=== PATIENT | male | born 1995 | race Caucasian/White ===

== ENCOUNTER 2019-10-16 06:30 | Inpatient (IN) | payer BC, OTHER ==
[2019-10-16] MEDS ORDERED: Acetaminophen TAB* 325 MG PO ONE (06:47)
[2019-10-16] MEDS ORDERED: Piperacillin/Tazobac ADVAN(*) 3.375 GM in NS 0.9% 100 ML* 100 ML IVPB ONE (06:48)
[2019-10-16] MEDS ORDERED: Ondansetron INJ* 2 MG/ML VIAL IV ONE (06:50)
--- NOTE | 2019-10-16 06:50 | ED ---
GI/ HPI - HPI Summary HPI Summary: 23 year old male presents with abdominal pain for the psat couple days. He ate a fatty meal on and developed the pain then and has been intermittent since. He admits to nausea for the past couple days. He had diarrhea today. no blood in his stool. He developed a fever today. Denies any chest pain. Denies any cough. He admits to shortness of breath. His pain does radiate to his back. Pain is in his right upper quadrant. He has never had this pain before. Does have history of spleen removed due to splenomegaly. He states when he gets sick he is normal placed on antibiotics. Never had this before. Not around anyone who is sick. No recent travel. He states his only been able to eat applesauce down the past couple days. He denies any alcohol use. - History of Current Complaint Chief Complaint: EDAbdPain Time Seen by Provider: 10/16/19 06:37 Stated Complaint: ABD PAIN FOR A WEEK PER PT Pain Intensity: 2 - Allergy/Home Medications Allergies/Adverse Reactions: Allergies Allergy/AdvReac Type Severity Reaction Status Date / Time No Known Allergies Allergy Verified 10/16/19 06:32 Home Medications: Home Medications NK [No Home Medications Reported] 10/16/19 [History Confirmed 10/16/19] PMH/Surg Hx/FS Hx/Imm Hx Endocrine/Hematology History: Reports: Other Endocrine/Hematological Disorders - asplenic Cardiovascular History: Denies: Hx Hypertension Infectious Disease History: No Infectious Disease History: Denies: Traveled Outside the [place] in Last 30 Days - Family History Known Family History: Positive: Non-Contributory - Social History Substance Use Type: Reports: None Smoking Status (MU): Never Smoked Tobacco Review of Systems Positive: Fever, Chills Negative: Chest Pain Negative: Shortness Of Breath, Cough Positive: Abdominal Pain, Vomiting, Diarrhea, Nausea All Other Systems Reviewed And Are Negative: Yes Physical Exam Triage Information Reviewed: Yes Vital Signs On Initial Exam: Initial Vitals Temp Pulse Resp BP Pulse Ox 103 F 152 20 115/75 95 10/16/19 06:33 10/16/19 06:33 10/16/19 06:33 10/16/19 06:33 10/16/19 06:33 Vital Signs Reviewed: Yes Appearance: Positive: Well-Appearing Skin: Positive: Warm, Dry Head/Face: Positive: Normal Head/Face Inspection Eyes: Positive: Normal, Conjunctiva Clear Respiratory/Lung Sounds: Positive: Clear to Auscultation, Breath Sounds Present Cardiovascular: Positive: Normal, RRR Abdomen Description: Positive: Soft, CVA Tenderness (R), Other: - tenderness in RUQ Bowel Sounds: Positive: Present Musculoskeletal: Positive: Normal Neurological: Positive: Normal Psychiatric: Positive: Normal Procedures - Sedation Patient Received Moderate/Deep Sedation with Procedure: No Diagnostics - Vital Signs Vital Signs Temp Pulse Resp BP Pulse Ox 10/16/19 06:33 103 F 152 20 115/75 95 - Laboratory Result Diagrams: 10/16/19 07:20 10/16/19 07:20 Lab Statement: Any lab studies that have been ordered have been reviewed, and results considered in the medical decision making process. - Radiology chest Radiology Interpretation Completed By: ED Physician Summary of Radiographic Findings: #. Elevated lung volumes may reflect obstructive lung disease or simply exuberant inspiratory effort for examination - CT abd Summary of CT Findings: IMPRESSION: #. Indeterminant 7.1 x 8.7 x 6.9 cm mass at the RIGHT posterior hepatic segment. Given evidence for portal hypertension the differential includes hepatocellular carcinoma as well as hepatic adenoma. In the correct clinical context a hepatic abscess would also be possible. The provider notes that the patient has fever and elevated white blood cell count raising concern for potential abscess. Ultrasound-guided fine-needle aspiration biopsy suggested for pathologic assessment and microbiology/culture. #. Negative for lymphadenopathy. #. Post splenectomy. - Ultrasound No standard instances Ultrasound Interpretation Completed By: Radiologist Summary of Ultrasound Findings: IMPRESSION: No evidence of cholelithiasis or biliary duct dilatation is noted. There is a mass which appears to be extrinsic to the liver may represent an adrenal mass measuring 7.8 x 6.2 x 8.[address] is suggested. Re-Evaluation - Re-Evaluation First Eval Re-Evaluation Time: 08:54 Change: Improved Comment: feeling better Second Eval Re-Evaluation Time: 13:25 Comment: pain is returning GIGU Course/Dx - Course Course Of Treatment: 23 year old male presents with abdominal pain today. He admits to nausea for the past couple days. He had diarrhea today. no blood in his stool. He developed a fever today. Denies any chest pain. Denies any cough. He admits to shortness of breath. His pain does radiate to his back. Pain is in his right upper quadrant. He has never had this pain before. Does have history spleen removed due to splenomegaly. He states when he gets sick he is normal placed on antibiotics. Never had this before. Not around anyone who is sick. No recent travel. He states his only been able to eat applesauce down the past couple days. On exam tenderness RUQ. Right CVA tenderness. wbc 23. crp elevated. lfts elevated. lipase normal. gallbladder u/s shows potential adrenal mass. chest xray shows no active disease. urine no infection. gave fluids, tyenlol and zosyn and patient continues to be tachycardic. did covid test with fever and admits to shortness of breath. CT shows liver mass. may be abscess but less likely. placed on zosyn and fluids. discussed with dr gonzales who agrees to admit. - Diagnoses Differential Diagnoses - Male: Cholecystitis, Cholelithiasis, Gastroenteritis ( Bacterial), Gastroenteritis (Viral) Provider Diagnoses: Fever, Liver mass, Sepsis - Critical Care Time Critical Care Time: 30-74 min - 40 mins Discharge ED - Sign-Out/Discharge Documenting (check all that apply): Patient Departure - Discharge Plan Condition: Stable Disposition: ADMITTED TO [facility] - Billing Disposition and Condition Condition: STABLE Disposition: Admitted to [facility] - Attestation Statements Provider Attestation: I was available for consult. This patient was seen by the CHARLES. The patient was not presented to, seen by, or examined by me. John Menjivar MD
[2019-10-16] MEDS ORDERED: Piperacillin/Tazobac (*) 3.375 GM BAG ONE (06:51)
[2019-10-16] MEDS: NS 0.9% 1000 ML** 2,000 ML IV ONE ×2 (07:11→08:23)
[2019-10-16 07:44] LABS: Hematocrit 35 % (42-52); Hemoglobin 12.3 g/dL (14.0-18.0); Mean Corpuscular HGB Conc 35 g/dL (31-36); Mean Corpuscular Hemoglobin 34 pg (27-31); Mean Corpuscular Volume 97 fL (80-94); Mean Platelet Volume 10.2 fL (7.4-10.4); Platelet Count 237 10^3/uL (150-450); Red Blood Count 3.65 10^6 /uL (4.18-5.48); Red Cell Distribution Width 13 % (10-15); White Blood Count 23.8 10^3/uL (3.5-10.8)
[2019-10-16 07:56] LABS: ALT 220 U/L (7-52); AST 108 U/L (13-39); Albumin 4.2 g/dL (3.2-5.2); Albumin/Globulin Ratio 1.2 (1-3); Alkaline Phosphatase 93 U/L (34-104); Anion Gap 13 mmol/L (2-11); Blood Urea Nitrogen 10 mg/dL (6-24); C Reactive Protein 95.34 mg/L (<8.01); CO2 Carbon Dioxide 21 mmol/L (22-32); Calcium 9.6 mg/dL (8.6-10.3); Chloride 99 mmol/L (101-111); EGFR African American 123.9 (>60); EGFR Non-African American 102.4 (>60); Globulin 3.5 g/dL (2-4); Glucose 121 mg/dL (70-100); Potassium 3.5 mmol/L (3.5-5.0); Sodium 133 mmol/L (135-145); Total Protein 7.7 g/dL (6.4-8.9)
[2019-10-16] MEDS ORDERED: NS 0.9% 1000 ML** 1,000 ML IV ONE (08:16)
[2019-10-16 09:25] LABS: Urine Appearance Clear; Urine Bilirubin Negative (Negative); Urine Blood 1+ (Negative); Urine Color Yellow; Urine Glucose Negative (Negative); Urine Ketones 1+ (Negative); Urine Nitrite Negative (Negative); Urine Protein Negative (Negative); Urine Specific Gravity 1.008 (1.010-1.030); Urine Urobilinogen Negative (Negative)
[2019-10-16 09:35] LABS: Urine Bacteria Absent (Absent); Urine Red Blood Cell Trace(0-2/hpf) (Absent); Urine White Blood Cell Trace(0-5/hpf) (Absent)
[2019-10-16 09:45] LABS: ABS Basophils 0.1 10^3/ul (0-0.2); ABS Lymphocytes 1.5 10^3/ul (1.0-4.8); ABS Monocytes 5.7 10^3/ul (0-0.8); ABS Neutrophils 16.6 10^3/ul (1.5-7.7); Lymphocyte % 6.1 %
[2019-10-16] MEDS ORDERED: Iohexol 300* (CONTRAST) 10 ML SDV IV ONE (11:08)
[2019-10-16] MEDS ORDERED: Ketorolac INJ* 30 MG/ML 1 ML VIAL IV PUSH ONE (13:25)
[2019-10-16] MEDS ORDERED: Ondansetron INJ* 2 MG/ML VIAL IV PRN (14:19)
[2019-10-16] MEDS ORDERED: fentaNYL* 50 MCG/ML 2 ML VIAL (100 MCG VIAL) ONE (14:51)
[2019-10-16 14:58] LABS: % Iron Saturation 7 % (15-55); Iron 20 ug/dL (50-212); Total Iron Binding Capacity 288 mcg/dL (250-450); Transferrin 206 mg/dL (203-362)
[2019-10-16] MEDS ORDERED: Zosyn per Pharmacy* NOTE FOLLOW UP SCH (15:00)
[2019-10-16 15:23] LABS: Folate 7.79 ng/mL (>3.99)
[2019-10-16] MEDS: ZOSYN 3.375 GM Q8H per EXTENDED INFUSION IVPB SCH ×4 (16:18→23:01)
[2019-10-16] MEDS: NS 0.9% 1000 ML** 1,000 ML IV SCH (16:18)
[2019-10-16 16:22] LABS: Hepatitis B Surface Antigen Nonreactive (Nonreactive)
[2019-10-16 16:40] LABS: Hepatitis C Antibody Negative (Negative)
--- NOTE | 2019-10-16 18:08 | HP ---
Amended report to enter cosigning physician. CC: Dr. Winter; Dr. Pranay Joy; Dr. Narendra Marquse* ADMISSION HISTORY AND PHYSICAL: DATE OF ADMISSION: 10/16/19 PRIMARY CARE PROVIDER: Dr. Winter at [facility]. MY ATTENDING WHILE IN THE HOSPITAL: Dr. Pranay Joy* (dictated by MARK Ramirez). CONSULTING INFECTIOUS DISEASE DOCTOR: Dr. Narendra Marques. CHIEF COMPLAINT: Right upper quadrant abdominal pain, nausea, diarrhea for 7 days. HISTORY OF PRESENT ILLNESS: Mr. 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 The patient has not had profuse vomiting since then. The patient never had any blood in his vomiting. The patient has not passed out. The patient has not had any significant shortness of breath, just "deep breathing" when he had a fever. The patient has not had any recent weight loss or weight gain. No chronic symptoms. The patient has not had any pain with urination. The patient is a heterosexual male, has never had anal intercourse except for female partners in his lifetime. The patient denies IV drug use. The patient does smoke occasional marijuana. The patient in 2014 visited [facility] with his family and at that time drank "bad water." The patient had no traveler 's diarrhea or other symptoms at that time. In the emergency department, the patient was found to have a large mass in the right lobe of his liver with associated signs of portal hypertension and an elevated white blood cell count, fever, elevated CRP as well as elevated liver enzymes. Due to concern for liver abscess versus other causes of liver mass, we were asked to evaluate the patient for admission to the hospital. PAST MEDICAL HISTORY: Splenomegaly, unclear cause. PAST SURGICAL HISTORY: Splenectomy in 2007. MEDICATIONS: None. ALLERGIES: None. FAMILY HISTORY: Both the patient's parents are alive and well. The patient had 2 grandparents who of lung cancer. The patient does not know what his other 2 grandparents of. The patient has no family history of early cancers, particularly no premature history of colon cancer or liver cancer. SOCIAL HISTORY: The patient does not smoke. The patient does not drink alcohol. The patient smokes occasional marijuana. 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 The patient is not and has no children. REVIEW OF SYSTEMS: A 10-point review of systems was reviewed and is negative except as above in HPI. PHYSICAL EXAMINATION GENERAL: The patient is a 23-year-old male, appears stated age and sitting comfortably in bed, in no acute distress. VITAL SIGNS: At the time of evaluation, temperature 103, pulse rate 93, respiratory rate 21, oxygen saturation 94% on room air, blood pressure 127/81. HEENT: Head is normocephalic, atraumatic. Sclerae anicteric. No conjunctival injection. Nasal mucosa moist. Oral mucosa moist. No pharyngeal erythema, discharge, or exudate. NECK: Supple, nontender. No lymphadenopathy. No carotid bruits auscultated. No JVD. RESPIRATORY: Clear to auscultation bilaterally. No wheezes, rales, or rhonchi. Good air exchange bilaterally. CARDIAC: Tachycardic. No clicks, murmurs, gallops, or rubs. Pulses 2+ in bilateral dorsalis pedis, posterior tibialis, and radial areas. ABDOMEN: Soft, tender to very deep palpation in the right upper quadrant. Bowel sounds present, normoactive in all 4 quadrants. No hepatosplenomegaly. No abdominal bruits auscultated. No hepatojugular reflux. GENITOURINARY: No suprapubic or CVA tenderness. NEUROLOGIC: Cranial nerves II through XII intact. No focal deficits. Alert and oriented x3. PSYCHIATRIC: Pleasant and cooperative. SKIN: Clean, dry, and intact. No rash. DIAGNOSTIC STUDIES/LAB DATA: Laboratory Data: White blood cell count 23.8, hemoglobin 12.3, platelet count 234. Sodium 133, potassium 3.5, chloride 99, carbon dioxide 29, anion gap 13, BUN 10, creatinine 0.91, glucose 121, lactic acid 1.1, calcium 9.6. Bilirubin 1.0, AST 108, ALT 220, alkaline phosphatase 93. CRP 95.34. Protein 7.7, albumin 4.2, globulin 3.5. Lipase 12. Studies: Gallbladder ultrasound read as no evidence of cholelithiasis, biliary duct dilatation noted. There is a mass which appears to be extending to the liver, may represent adrenal mass measuring 7.8 x 6.2 x 8.[address] is suggested. Abdomen and pelvis CT read as 7.1 x 8.7 x 6.9 cm heterogeneously hyperdense, sharply circumscribed lesion in the subcapsular posterior aspect of the of the right posterior hepatic segment with suggestion of mild marginal enhancement of lesion, results in a mild mass effect on the intrahepatic segment of the IVC. Lesion appears intrahepatic and does not arise from the adrenal gland. Negative for additional focal liver lesions. Small portal vein possibly with cavernous transformation, markedly hypertrophied hepatic artery and celiac axis. Large portosystemic shunts including paraesophageal varices. Negative for lymphadenopathy. Post splenomegaly. Concern for abscess versus hepatocellular carcinoma versus hepatic adenoma. ASSESSMENT AND PLAN: Impression: Mr. Schultz is a 23-year-old male with past medical history significant for splenomegaly, status post splenectomy in 2007, who presented to the emergency department with 1 week of abdominal pain, vomiting, and subjective fevers, who is admitted to the hospital with concern for liver abscess. 1. Liver mass. Abscess versus cancer. The patient has a large mass in his liver, 7 cm in its greatest dimension. The patient does have signs of acute infection with an elevated white blood cell count, elevated CRP, and fever. This based also in conjunction with the patient's age strongly favors liver abscess, particularly given the patient does not have cirrhotic architecture of his liver and no risks factors. The patient has no risk factors particularly for liver abscess, though amebic abscess that has been asymptomatic for the last 5 years since he was in [facility] is on the differential. The patient has no symptoms or other signs of liver cancer that may predispose to translocation in liver abscess. The patient is not a chronic alcoholic. A hepatis panel will be sent. The patient has no high-risk sexual activities for Entamoeba. Given the patient's portal hypertension, this may very well be a chronic finding. This is unlikely to be related to the patient's splenomegaly. The patient has been given a dose of Zosyn and this will be continued. The patient's case has been discussed with Dr. Narendra Marques of Infectious Disease and he recommends against anti-amoebic therapy at this time and just IV antibiotics pending culture and pathology. The patient is tachycardic particularly with movement and has been given 3 L of fluid and will be continued on it at 125 mL/hour. Given the current pandemic, there is some concern that if the patient's GI symptoms are related to COVID-19 and his liver mass is an incidental finding. The patient will be tested for COVID-19 and the patient's isolation has been upheld per Dr. Narendra Marques. The patient will have a ultrasound-guided biopsy with Dr. Eber Rene hopefully later today. The patient's stool culture , urine culture, blood cultures, stool ova and parasites, and Entamoeba histolytica antigen and antibody from his serum sent. 3. Anemia. The patient has a macrocytic anemia. There is an unlikely cause for this and his splenomegaly being related to hematologic malignancy. Folate, B12, iron studies have been sent. If patient's white blood cell count remains elevated after treatment and no other diagnosis is found or if biopsy is consistent with malignancy, Hematology/Oncology will be consulted. 4. FEN. The patient will be n.p.o. right now and then resume a full-liquid diet. The patient will have fluids as above. 5. Disposition. The patient admitted to the hospital. Estimated length of stay is greater than 2 midnights. 6. Code status. The patient would like to be a full code. TIME SPENT: Approximately 60 minutes was spent on admission of this patient, 30 of which is spent [id number] with the patient obtaining history and physical and discussing treatment plan. The plan was discussed with my attending, Dr. Pranay Joy, and he is in agreement. MARK RAMIREZ [id number]/[facility] #: [id number] MONICA
[2019-10-17] MEDS: Acetaminophen TAB* 325 MG PO PRN ×2 (04:22→12:39)
[2019-10-17 07:09] LABS: Hematocrit 33 % (42-52); Hematocrit for Retic CNT 33 % (42-52); Mean Corpuscular HGB Conc 34 g/dL (31-36); Mean Corpuscular Hemoglobin 33 pg (27-31); Mean Corpuscular Volume 98 fL (80-94); Mean Platelet Volume 9.5 fL (7.4-10.4); Platelet Count 239 10^3/uL (150-450); RBC Retic Count 3.32 10^6/uL (4.18-5.48); Red Blood Count 3.32 10^6 /uL (4.18-5.48); Red Cell Distribution Width 13 % (10-15); White Blood Count 26.7 10^3/uL (3.5-10.8)
[2019-10-17 07:26] LABS: Corrected Retic Count 0.8 % (0.5-1.5); Immature Retic Fraction 0.37
[2019-10-17] MEDS: ZOSYN 3.375 GM Q8H per EXTENDED INFUSION IVPB SCH ×4 (07:27→16:35)
[2019-10-17 07:29] LABS: ABS Basophils 0.2 10^3/ul (0-0.2); ABS Lymphocytes 2.4 10^3/ul (1.0-4.8); ABS Monocytes 7.2 10^3/ul (0-0.8); ABS Neutrophils 16.9 10^3/ul (1.5-7.7); Lymphocyte % 9.1 %
[2019-10-17 07:35] LABS: Albumin 3.4 g/dL (3.2-5.2); Albumin/Globulin Ratio 1.1 (1-3); BUN/Creatinine Ratio 7.7 (8-20); C Reactive Protein 128.56 mg/L (<8.01); Calcium 8.8 mg/dL (8.6-10.3); EGFR Non-African American 122.3 (>60); Magnesium 1.7 mg/dL (1.9-2.7); Potassium 3.8 mmol/L (3.5-5.0); Total Bilirubin 2.1 mg/dL (0.2-1.0); Total Protein 6.4 g/dL (6.4-8.9)
[2019-10-17] MEDS: NS 0.9% 1000 ML** 1,000 ML IV SCH ×2 (12:37→21:47)
[2019-10-17] MEDS ORDERED: Magnesium Sulfate 2 GM IV* 2 GM/50 ML BAG IVPB ONE (13:06)
--- NOTE | 2019-10-17 15:08 | PN ---
Subjective Date of Service: 10/17/19 Interval History: Mr. Schultz is feeling better this morning. Abdominal pain is essentially resolved. He has occasional twinges of pain when sitting up, but they are quickly resolved. No further N/V. Has been tolerating PO intake. Denies CP, SOB , cough. No concerns from nursing. Family History: Unchanged from Admission Social History: Unchanged from Admission Past Medical History: Unchanged from Admission Objective Active Medications: Acetaminophen (Tylenol Tab*) 650 mg PO Q6H PRN MILD PAIN or TEMP > 100.4 Sodium Chloride (Ns 0.9% 1000 Ml) 1,000 mls @ 125 mls/hr IV PER RATE KEYSHAWN Piperacillin Sod/Tazobactam (Sod 3.375 gm/ Sodium Chloride) 100 mls @ 25 mls/ hr IVPB Q8H KEYSHAWN Ondansetron HCl (Zofran Inj*) 4 mg IV Q6H PRN NAUSEA Vital Signs - 8 hr 10/17/19 10/17/19 10/17/19 07:15 07:48 11:15 Temperature 98.1 F 101.1 F Pulse Rate 98 98 Respiratory 18 18 18 Rate Blood Pressure 125/74 126/75 (mmHg) O2 Sat by Pulse 97 96 Oximetry Oxygen Devices in Use Now: None Appearance: Young adult male sitting in bed in NAD Ears/Nose/Mouth/Throat: Mucous Membranes Moist Neck: NL Appearance and Movements; NL JVP, Trachea Midline Respiratory: Symmetrical Chest Expansion and Respiratory Effort, Clear to Auscultation Cardiovascular: NL Sounds; No Murmurs; No JVD, RRR Abdominal: NL Sounds; No Tenderness; No Distention Neurological: Alert and Oriented x 3 Lines/Tubes/Other Access: Clean, Dry and Intact Peripheral IV Nutrition: Taking PO's Result Diagrams: 10/17/19 07:02 10/17/19 07:02 Assess/Plan/Problems-Billing Assessment: Ms. Schultz is a 23 yo M with PMH of splenomegaly s/p splenectomy; presented to the ED with c/o abdominal pain and vomiting, found to have a liver mass of unknown etiology. - Patient Problems (1) Liver mass Code(s): R16.0 - HEPATOMEGALY, NOT ELSEWHERE CLASSIFIED Comment: - With mild transaminitis - CT showing 8cm mass in the right posterior liver - Differentials: hepatocellular carcinoma, hepatic adenoma, abscess - Leukocytosis, fever, and elevated CRP support abscess - Liver biopsy yesterday, results pending - Appreciate ID consult - Continue Zosyn (2) Abdominal pain Code(s): R10.9 - UNSPECIFIED ABDOMINAL PAIN Comment: - With N/V and fevers, now resolved - COVID pending (3) Macrocytic anemia Code(s): D53.9 - NUTRITIONAL ANEMIA, UNSPECIFIED Comment: - Iron studies consistent with AOCD - Possibly r/t infection - Continue to trend and await biopsy results (4) DVT prophylaxis Code(s): Z29.9 - ENCOUNTER FOR PROPHYLACTIC MEASURES, UNSPECIFIED Comment: - TEDs (5) Full code status Code(s): Z78.9 - OTHER SPECIFIED HEALTH STATUS Comment: Status and Disposition: Inpatient. Anticipate d/c home when medically stable. Attending: Dania Mujica
[2019-10-17] MEDS ORDERED: Melatonin 3 MG TAB PO PRN (18:52)
--- NOTE | 2019-10-17 20:41 | CONS ---
CONSULTATION REPORT: DATE OF CONSULT: 10/17/19 PRIMARY CARE PROVIDER: Dr. Winter. PROVIDER REQUESTING CONSULTATION: MARK Donovan. CONSULTING SERVICE: Infectious Diseases. PROVIDER: Luis Miguel Mascorro NP. ATTENDING PROVIDER: Dr. Narendra Marques* (Luis Miguel Mascorro NP). REASON FOR CONSULTATION: Suspected liver abscess. IMPRESSION: 1. Suspected liver abscess. The patient developed abdominal pain approximately 1 week ago in the setting of vomiting and this has continued for a week. He was noted to have leukocytosis with a white blood cell count of approximately 26,000 today, elevated CRP of 128.56. CMP also revealed elevated LFTs. A gallbladder ultrasound with no evidence of cholelithiasis, biliary duct dilation noted, a mass which appears to be extending to the liver, may represent adrenal mass measuring 7.8 x 6.2 x 8.6. He also had an abdomen pelvis CT showing a 7.1 x 8.7 x 6.9 cm heterogeneously hyperdense, sharply circumscribed lesion in the subscapular posterior aspect of the right posterior hepatic segment with suggestion of mild marginal enhancement of lesion, mild mass effect of the intrahepatic segment of the IVC. Lesion appears intrahepatic and does not arise from the adrenal gland. Negative for additional focal liver lesion. No lymphadenopathy, post splenomegaly, concern for abscess versus hepatocellular carcinoma versus hepatic adenoma. Additionally, the patient is noted to be febrile with a temperature max of 103 overnight. Mild tachycardia with heart rate in the 90s to 110s. Blood cultures with no growth. Additionally, urine culture with no growth. He is currently on Zosyn. No identified risk factors for liver abscess. The patient denies any IV drug use, any recent abdominal surgeries. He was noted to have traveled to [facility] approximately 5 years ago, no other recent travel. He underwent an ultrasound- guided biopsy yesterday with results still pending. Unfortunately, no fluid was obtained and sent for culture; just a biopsy was obtained. 2. Anemia. Noted to have macrocytic anemia. RECOMMENDATIONS/PLAN: Recommend continuing Zosyn while we await biopsy results from the liver. Additionally, COVID-19 testing is pending at this time. We will continue to follow along. Final recommendations will be based on the patient's clinical course and final workup. HISTORY OF PRESENT ILLNESS: Mr. Schultz is a 23-year-old male with past medical history significant for splenomegaly, status post splenectomy in 2007, who had been in his usual state of health when last he had had sausage, egg, and cheese sandwich with sudden onset of nausea and a large volume of vomiting. He vomited 4 times and then had developed what he describes as a "stitch" in the right side of his upper abdomen that has been ongoing since. He denies any previous pain in the right side of his abdomen prior to the onset of symptoms approximately a week ago. He has also noted nausea and then only able to eat applesauce in the setting of the nausea. He reports starting to feel better on Sunday, but then developed diarrhea with multiple stools up to 7 a day on Sunday and that he reports as being liquid. 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 While in the emergency room, he had labs showing elevated CRP of 95.34, leukocytosis with a white blood cell count of 23.8 and urinalysis remarkable for 1+ blood, ketones, negative for bacteria, leukocyte esterase, trace white blood cells. He is febrile with a fever of 103. He had COVID testing, which continues to be pending. He had a gallbladder ultrasound that showed no evidence of cholelithiasis, biliary duct dilation, and a mass that appeared to be extending to the liver measuring 7.8 x 6.2 x 8.6. He had an abdomen and pelvis CT scan showing 7.1 x 8.7 x 6.9 cm heterogeneously hyperdense, sharply circumscribed lesion in the subscapular posterior aspect of the right posterior hepatic segment with a suggestion of mild marginal enhancement of the lesion, resultant mild mass effect of the intrahepatic segment of the IVC. Lesion appears intrahepatic and does not arise from the adrenal gland. Negative for additional focal liver lesions. Small portal vein possibly with cavernous transformation, markedly hypertrophied hepatic artery and celiac axis. Large portosystemic shunts including paraesophageal varices. Negative for lymphedema postsplenectomy. Concern for abscess versus hepatocellular carcinoma versus hepatic adenoma. Chest CT with elevated lung volumes, may reflect obstructive lung disease or simply exuberant inspiratory effort for examination. The patient was ultimately referred to the hospitalist service for admission. While in the hospital, the patient has continued to have fever, febrile this morning at 101.1 with a 103.1 fever overnight. He denies chills overnight when he was having the fevers or this morning in the setting of fever. He reports that the nausea he was having prior to vomiting has now resolved and he has had no further nausea and vomiting. He continues to have some mild right upper abdominal pain, not requiring pain medication for this. He denies any cough, shortness of breath, upper respiratory symptoms such as postnasal drip or nasal congestion. He does report right back and flank discomfort that he describes as a "side stitch" with deferred right shoulder pain. Denies any urinary symptoms such as urgency, burning, or dysuria. Repeat labs this morning show leukocytosis with a white blood cell count of 26.7. CRP continues to be elevated at 128.56. He continues to have elevated LFTs. Blood cultures with no growth on day 1. Urine culture with no growth. Stool culture has been obtained but is pending. Shiga toxin was not performed. Liver biopsy results continue to be pending. He has been on Zosyn. He reports some fatigue and dizziness. PAST MEDICAL HISTORY: Splenomegaly. PAST SURGICAL HISTORY: 1. Status post splenectomy in 2007. 2. Status post tonsillectomy. 3. Status post bilateral inguinal hernia repairs. 4. Status post umbilical hernia repair as an infant. MEDICATIONS: Home medications: None. Hospital medications: 1. Acetaminophen 650 mg by mouth every 6 hours as needed for fever or pain. 2. Zofran 4 mg IV every 6 hours as needed for nausea. 3. Zosyn 3.375 g IV every 8 hours. 4. Sodium chloride 125 mL intravenously an hour. ALLERGIES: No known drug allergies. FAMILY HISTORY: No family history of recurrent resistant infections. No family history of coronary artery disease or diabetes. Mother with a history of breast cancer. Maternal grandmother with a history of lung cancer and paternal grandfather with a history of lung cancer, both grandparents were smokers. SOCIAL HISTORY: Reports occasional alcohol use. Denies daily alcohol use. Denies tobacco use. He smokes marijuana daily. Denies any IV or other recreational drug use. REVIEW OF SYSTEMS: I performed a 10-point review of systems. All the pertinent positives and negatives are mentioned in the history of present illness. The remaining review of systems are negative. PHYSICAL EXAMINATION: Vital Signs: Temperature 98.1, heart rate 98, respiratory rate 18, O2 sat 97% on room air, blood pressure 125/74. General Appearance: Alert, appears to be in no acute distress. Head: Normocephalic, atraumatic. ENT: Extraocular movements are intact. No subconjunctival hemorrhage. No scleral icterus. Moist mucous membranes. Neck: Supple. No lymphadenopathy noted. Neurological: Alert and oriented. Cranial nerves II through XII are grossly intact. Moves all extremities. Cardiovascular: Regular rate and rhythm. S1, S2 present. No murmurs, rubs, or gallops heard. Respiratory: No accessory muscle use. Lungs: Clear to auscultation bilateral. Abdomen: Bowel sounds present. Abdomen soft, nontender, nondistended. Extremities: No lower extremity edema. DP pulses are 2+, symmetric. Musculoskeletal: No clubbing or cyanosis noted. Exhibits good strength in all extremities. He is noted to have some mild discomfort with palpation on the right side near the ribs close to the biopsy site. Psychological: Calm and cooperative. Skin: No rashes or abnormalities seen. There is a dressing over the right flank biopsy site that is clean, dry, and intact. DIAGNOSTIC STUDIES/LABORATORY DATA: Sodium 136, potassium 3.8, chloride 103, CO2 23, BUN 6, creatinine 0.78, glucose 100. White blood cell count 26.7, hemoglobin 11.0, hematocrit 33, platelet count 231. CRP 128.56. COVID-19 testing is pending. Please see impression and recommendations outlined above, recommendations have been discussed with Cayla Choi NP. The case has been discussed with my attending Dr. Narendra Marques, who agrees with the plan of care. Reviewed by LUIS MIGUEL MASCORRO, ZAN-C 10/20/19 1525 [id number]/[facility] #: [id number] [place]
[2019-10-18] MEDS: ZOSYN 3.375 GM Q8H per EXTENDED INFUSION IVPB SCH ×4 (00:51→10:06)
[2019-10-18] MEDS: NS 0.9% 1000 ML** 1,000 ML IV SCH ×2 (05:12→13:30)
[2019-10-18 06:09] LABS: Hematocrit 30 % (42-52); Hemoglobin 10.2 g/dL (14.0-18.0); Mean Corpuscular HGB Conc 34 g/dL (31-36); Mean Corpuscular Hemoglobin 33 pg (27-31); Mean Corpuscular Volume 98 fL (80-94); Mean Platelet Volume 9.6 fL (7.4-10.4); Platelet Count 267 10^3/uL (150-450); Red Blood Count 3.09 10^6 /uL (4.18-5.48); Red Cell Distribution Width 13 % (10-15); White Blood Count 19.8 10^3/uL (3.5-10.8)
[2019-10-18 06:11] LABS: ABS Basophils 0.1 10^3/ul (0-0.2); ABS Lymphocytes 2.5 10^3/ul (1.0-4.8); ABS Monocytes 5.7 10^3/ul (0-0.8); ABS Neutrophils 11.5 10^3/ul (1.5-7.7); Eosinophil % 0.1 %; Lymphocyte % 12.8 %
[2019-10-18 06:29] LABS: Albumin 3.3 g/dL (3.2-5.2); Albumin/Globulin Ratio 1.2 (1-3); BUN/Creatinine Ratio 8.5 (8-20); C Reactive Protein 152.52 mg/L (<8.01); EGFR African American 163.6 (>60); EGFR Non-African American 135.2 (>60); Globulin 2.7 g/dL (2-4); Potassium 3.7 mmol/L (3.5-5.0); Total Bilirubin 1.5 mg/dL (0.2-1.0)
[2019-10-18] MEDS: Acetaminophen TAB* 325 MG PO PRN ×2 (10:09→17:05)
[2019-10-18] MEDS: metroNIDAZOLE IV 500 MG/100ML* 500 MG/100 ML BAG IVPB SCH ×2 (13:25→19:51)
--- NOTE | 2019-10-18 15:55 | PN ---
Subjective Date of Service: 10/18/19 Interval History: 24 year old man with vomiting, diarrhea, fever, RUQ pain, R lobe of liver mass on CT; biopsy of solid material, no pus. Abd pain resolved, still loose stools. Appetite improved today for first time. No rash. Travel was [place] 2014. Family History: Unchanged from Admission Social History: Unchanged from Admission Past Medical History: Unchanged from Admission Objective Active Medications: Acetaminophen (Tylenol Tab*) 650 mg PO Q6H PRN PRN Reason: MILD PAIN or TEMP > 100.4 Last Admin: 10/18/19 10:09 Dose: 650 mg Sodium Chloride (Ns 0.9% 1000 Ml) 1,000 mls @ 125 mls/hr IV PER RATE KEYSHAWN Last Admin: 10/18/19 13:30 Dose: 125 mls/hr Metronidazole/Sodium Chloride (Flagyl 500 Mg Ivpb*) 500 mg in 100 mls @ 100 mls /hr IVPB Q8H KEYSHAWN Last Admin: 10/18/19 13:25 Dose: 100 mls/hr Ceftriaxone Sodium 2 gm/ (Sodium Chloride) 100 mls @ 200 mls/hr IVPB Q24H [facility] Melatonin (Melatonin) 3 mg PO BEDTIME PRN PRN Reason: SLEEP Ondansetron HCl (Zofran Inj*) 4 mg IV Q6H PRN PRN Reason: NAUSEA Vital Signs - 8 hr 10/18/19 10/18/19 10/18/19 08:00 10:00 13:24 Temperature 38.8 C 37.2 C Pulse Rate 115 86 Respiratory 20 20 21 Rate Blood Pressure 120/84 127/73 (mmHg) O2 Sat by Pulse 97 97 Oximetry Oxygen Devices in Use Now: None Eyes: No Scleral Icterus Ears/Nose/Mouth/Throat: Clear Oropharnyx Neck: NL Appearance and Movements; NL JVP Respiratory: Symmetrical Chest Expansion and Respiratory Effort, Clear to Auscultation Cardiovascular: NL Sounds; No Murmurs; No JVD, RRR Abdominal: NL Sounds; No Tenderness; No Distention, No Hepatosplenomegaly Skin: No Rash or Ulcers Neurological: Alert and Oriented x 3, NL Gait, NL Muscle Strength and Tone Result Diagrams: 10/18/19 05:53 10/18/19 05:53 Microbiology and Other Data: Microbiology 10/16/19 18:20 Stool Culture - Final Stool Stool Gross Appearance - Final Shiga Toxin I & II - Final 10/16/19 07:20 Aerobic Blood Culture - Preliminary Blood Venous No Growth Day 2 Anaerobic Blood Culture - Preliminary No Growth Day 2 10/16/19 07:20 Aerobic Blood Culture - Preliminary Blood Venous No Growth Day 2 Anaerobic Blood Culture - Preliminary No Growth Day 2 10/16/19 08:26 Urine Culture - Final Urine No Growth (<1,000 CFU/mL) Assess/Plan/Problems-Billing Assessment: Ms. Schultz is a 23 yo M with PMH of splenomegaly s/p splenectomy; presented to the ED with c/o abdominal pain and vomiting, found to have a liver mass of unknown etiology. - Patient Problems (1) Fever Current Visit: Yes Status: Acute Code(s): R50.9 - FEVER, UNSPECIFIED SNOMED Code(s): 469788098 Comment: covid pending; could be liver abscess, no evidence cholecystitis, continue tylenol (2) DVT prophylaxis Current Visit: Yes Status: Acute Code(s): Z29.9 - ENCOUNTER FOR PROPHYLACTIC MEASURES, UNSPECIFIED SNOMED Code(s): 094103447 Comment: - TEDs (3) Full code status Current Visit: Yes Status: Acute Code(s): Z78.9 - OTHER SPECIFIED HEALTH STATUS SNOMED Code(s): 669052182 Comment: (4) Liver mass Current Visit: Yes Status: Acute Code(s): R16.0 - HEPATOMEGALY, NOT ELSEWHERE CLASSIFIED SNOMED Code(s): 604214799 Comment: - With mild transaminitis - CT showing 8cm mass in the right posterior liver - Differentials: hepatocellular carcinoma, hepatic adenoma, abscess - Leukocytosis, fever, and elevated CRP support abscess or secondary infection of tumor - Liver biopsy results pending (5) Macrocytic anemia Current Visit: Yes Status: Acute Code(s): D53.9 - NUTRITIONAL ANEMIA, UNSPECIFIED SNOMED Code(s): 84984501 Comment: -B12 and folate normal - Iron studies consistent with AOCD - Possibly r/t infection - Continue to trend and await biopsy results Status and Disposition: Inpatient. Anticipate d/c home when medically stable. Points of Discussion: 35 minutes floor time >50% face to face in counseling regarding etiologies of liver mass and follow up plans
[2019-10-18] MEDS: cefTRIAXone(*) 2 GM in NS 0.9% 100 ML* 100 ML IVPB SCH (16:57)
[2019-10-18 17:21] LABS: HIV 4th Generation Nonreactive (Nonreactive)
[2019-10-18] MEDS ORDERED: Loperamide CAP* 2 MG PO PRN (19:24)
[2019-10-19] MEDS: NS 0.9% 1000 ML** 1,000 ML IV SCH ×3 (00:44→19:18)
[2019-10-19] MEDS: Acetaminophen TAB* 325 MG PO PRN ×3 (03:25→19:16)
[2019-10-19] MEDS: metroNIDAZOLE IV 500 MG/100ML* 500 MG/100 ML BAG IVPB SCH ×3 (03:25→19:16)
[2019-10-19 06:27] LABS: Hematocrit 30 % (42-52); Hemoglobin 9.9 g/dL (14.0-18.0); Mean Corpuscular HGB Conc 33 g/dL (31-36); Mean Corpuscular Hemoglobin 33 pg (27-31); Mean Corpuscular Volume 98 fL (80-94); Platelet Count 305 10^3/uL (150-450); Red Blood Count 3.03 10^6 /uL (4.18-5.48); Red Cell Distribution Width 13 % (10-15); White Blood Count 14.8 10^3/uL (3.5-10.8)
[2019-10-19 06:44] LABS: Albumin 3.1 g/dL (3.2-5.2); Albumin/Globulin Ratio 1.1 (1-3); BUN/Creatinine Ratio 6.1 (8-20); Calcium 8.3 mg/dL (8.6-10.3); EGFR African American 177.9 (>60); EGFR Non-African American 147.1 (>60); Globulin 2.9 g/dL (2-4); Potassium 3.7 mmol/L (3.5-5.0); Total Bilirubin 0.6 mg/dL (0.2-1.0)
--- NOTE | 2019-10-19 15:12 | PN ---
Subjective Date of Service: 10/19/19 Interval History: 24 year old man with fever, RUQ pain, diarrhea; liver mass on CT. RUQ pain resolved, fever continues overnight. Appetite much better for the first time today. Took imodium last night, no BM since then. Family History: Unchanged from Admission Social History: Unchanged from Admission Past Medical History: Unchanged from Admission Objective Active Medications: Acetaminophen (Tylenol Tab*) 650 mg PO Q6H PRN PRN Reason: MILD PAIN or TEMP > 100.4 Last Admin: 10/19/19 09:46 Dose: 650 mg Sodium Chloride (Ns 0.9% 1000 Ml) 1,000 mls @ 125 mls/hr IV PER RATE KEYSHAWN Last Admin: 10/19/19 09:47 Dose: 125 mls/hr Metronidazole/Sodium Chloride (Flagyl 500 Mg Ivpb*) 500 mg in 100 mls @ 100 mls /hr IVPB Q8H [facility]WN Last Admin: 10/19/19 13:00 Dose: 100 mls/hr Ceftriaxone Sodium 2 gm/ (Sodium Chloride) 100 mls @ 200 mls/hr IVPB Q24H [facility] Last Admin: 10/18/19 16:57 Dose: 200 mls/hr Loperamide HCl (Imodium Cap*) 2 mg PO .SEE DIRECTIONS PRN PRN Reason: DIARRHEA Last Admin: 10/18/19 19:51 Dose: 2 mg Melatonin (Melatonin) 3 mg PO BEDTIME PRN PRN Reason: SLEEP Ondansetron HCl (Zofran Inj*) 4 mg IV Q6H PRN PRN Reason: NAUSEA Vital Signs - 8 hr 10/19/19 10/19/19 10/19/19 08:00 08:50 09:35 Temperature 37.9 C 38.2 C Pulse Rate 89 Respiratory 18 16 Rate Blood Pressure 126/78 (mmHg) O2 Sat by Pulse 97 Oximetry 10/19/19 11:10 Temperature 37.4 C Pulse Rate 95 Respiratory 16 Rate Blood Pressure 123/73 (mmHg) O2 Sat by Pulse 98 Oximetry Appearance: no distress Eyes: No Scleral Icterus Ears/Nose/Mouth/Throat: Clear Oropharnyx Neck: Trachea Midline Respiratory: Symmetrical Chest Expansion and Respiratory Effort, Clear to Auscultation Cardiovascular: NL Sounds; No Murmurs; No JVD, RRR Abdominal: NL Sounds; No Tenderness; No Distention, No Hepatosplenomegaly Extremities: No Edema Skin: No Rash or Ulcers Neurological: Alert and Oriented x 3 Result Diagrams: 10/19/19 06:02 10/19/19 06:02 Microbiology and Other Data: Microbiology 10/16/19 18:20 Stool Culture - Final Stool Stool Gross Appearance - Final Shiga Toxin I & II - Final 10/16/19 07:20 Aerobic Blood Culture - Preliminary Blood Venous No Growth Day 2 Anaerobic Blood Culture - Preliminary No Growth Day 2 10/16/19 07:20 Aerobic Blood Culture - Preliminary Blood Venous No Growth Day 2 Anaerobic Blood Culture - Preliminary No Growth Day 2 10/16/19 08:26 Urine Culture - Final Urine No Growth (<1,000 CFU/mL) Assess/Plan/Problems-Billing Assessment: Ms. Schultz is a 23 yo M with PMH of splenomegaly s/p splenectomy; presented to the ED with c/o abdominal pain and vomiting, found to have a liver mass of unknown etiology. - Patient Problems (1) Fever Current Visit: Yes Status: Acute Code(s): R50.9 - FEVER, UNSPECIFIED SNOMED Code(s): 398401928 Comment: covid negative; BC negative, could be liver abscess, or secondary infection of liver tumor, no evidence cholecystitis, continue tylenol (2) DVT prophylaxis Current Visit: Yes Status: Acute Code(s): Z29.9 - ENCOUNTER FOR PROPHYLACTIC MEASURES, UNSPECIFIED SNOMED Code(s): 792935449 Comment: - TEDs (3) Full code status Current Visit: Yes Status: Acute Code(s): Z78.9 - OTHER SPECIFIED HEALTH STATUS SNOMED Code(s): 908775246 Comment: (4) Liver mass Current Visit: Yes Status: Acute Code(s): R16.0 - HEPATOMEGALY, NOT ELSEWHERE CLASSIFIED SNOMED Code(s): 735851420 Comment: - With mild transaminitis - CT showing 8cm mass in the right posterior liver - Differential: hepatocellular carcinoma, hepatic adenoma, abscess - Leukocytosis, fever, and elevated CRP support abscess or secondary infection of tumor - Liver mass biopsy results pending (5) Macrocytic anemia Current Visit: Yes Status: Acute Code(s): D53.9 - NUTRITIONAL ANEMIA, UNSPECIFIED SNOMED Code(s): 53261138 Comment: -B12 and folate normal - Iron studies consistent with AOCD - Possibly r/t infection - Continue to trend and await biopsy results (6) Esophageal varices without bleeding Current Visit: Yes Status: Acute Code(s): I85.00 - ESOPHAGEAL VARICES WITHOUT BLEEDING SNOMED Code(s): 89869011 Comment: seen on CT, needs EGD after discharge Status and Disposition: Inpatient. Anticipate d/c home when medically stable.
[2019-10-19] MEDS: cefTRIAXone(*) 2 GM in NS 0.9% 100 ML* 100 ML IVPB SCH (15:32)
[2019-10-20] MEDS: NS 0.9% 1000 ML** 1,000 ML IV SCH ×2 (04:03→12:27)
[2019-10-20] MEDS: metroNIDAZOLE IV 500 MG/100ML* 500 MG/100 ML BAG IVPB SCH ×2 (04:03→12:27)
--- NOTE | 2019-10-20 09:55 | PN ---
Progress Note - Progress Note Date of Service: 10/20/19 SOAP: Subjective: CC: Liver mass HPI: Mr. Schultz is a 24 yo male with PMH significant for splenomegaly s/p splenectomy in 2007; who presented to the hospital with nausea, vomiting, and ABD pain. He was found to have a liver mass and is s/p liver bx. Denies fever, chills, ABD pain, nausea, vomiting, or diarrhea. His appetite is ok. Objective: Vital Signs - 8 hr 10/20/19 10/20/19 10/20/19 03:15 07:15 08:00 Temperature 99.7 F 100 F Pulse Rate 86 91 86 Respiratory 20 20 20 Rate Blood Pressure 127/72 124/76 (mmHg) O2 Sat by Pulse 98 97 Oximetry Physical Exam: General: NAD, sitting up in bed Neurological: Alert and Oriented HEENT: Moist MM Cardiovascular: Heart rate regular Respiratory: Lung sounds clear Abdominal: Bowel sounds present; ABD soft, non tender and non distended Skin: No rash Laboratory Tests 10/18/19 10/19/19 10/19/19 05:53 06:02 06:02 WBC 14.8 H Hgb 9.9 L Hct 30 L Plt Count 305 Sodium 139 Potassium 3.7 Chloride 109 Carbon Dioxide 22 BUN 4 L Creatinine 0.66 L Glucose 92 C-Reactive Protein 152.52 H Microbiology 10/16/19 07:20 Aerobic Blood Culture - Preliminary Blood Venous No Growth Day 4 Anaerobic Blood Culture - Preliminary No Growth Day 4 10/16/19 07:20 Aerobic Blood Culture - Preliminary Blood Venous No Growth Day 4 Anaerobic Blood Culture - Preliminary No Growth Day 4 10/16/19 18:20 Stool Culture - Final Stool Stool Gross Appearance - Final Shiga Toxin I & II - Final 10/16/19 08:26 Urine Culture - Final Urine No Growth (<1,000 CFU/mL) Assessment: 1. Liver mass with concern for liver abscess. ABD CT scan - 7.1 cm x 8.7 cm x 6.9 cm mass in the right posterior hepatic segment of the liver. Differential dx : liver abscess, hepatocellular carcinoma, hepatic adenoma. Leukocytosis, elevated CRP and fevers support infectious process. Intermittent low grade fevers with last fever 102.8 early yesterday. Leukocytosis is improving. Blood cultures with no growth on day 4. Elevated CRP. ABD pain has resolved. S/P Liver bx and results pending. Ova and parasite on the liver specimen was negative. 2. Anemia. Plan: Continue ceftriaxone 2 gm IV daily and Flagyl, day 5 of ABX. Will get a midline placed today. DISCHARGE PLAN: Ceftriaxone 2 gm IV daily for 2 weeks and Flagyl 500 mg PO TID for 5 more days. Weekly labs while on IV ABX: CBC, CMP, CRP. Followup with ID outpatient next week. He should have repeat liver imaging near the end of ABX. 25 minutes floor time: > 50% spent with the patient discussing plan for ABX at discharge and followup.
--- NOTE | 2019-10-20 14:16 | DS ---
CC: Dr. Graham Merritt; Dr. Narendra Marques DISCHARGE SUMMARY: DATE OF ADMISSION: 10/16/19 DATE OF DISCHARGE: 10/20/19 PRIMARY DIAGNOSIS: Liver mass. SECONDARY DIAGNOSES: 1. Fever and right upper quadrant pain. 2. Macrocytic anemia. 3. Esophageal varices. 4. History of splenectomy. PERTINENT IMAGIN. On 10/16/19, CT of the abdomen and pelvis, 7.1 x 8.7 x 6.9 mass in the right posterior hepatic segment with small portal vein and possible cavernous transformation, hypertrophied hepatic artery and celiac axis, portosystemic shunts including paraesophageal varices. 2. On 10/20/19, portal vein ultrasound, hypertrophy of the hepatic artery, otherwise normal Doppler exam with hepatopetal flow and hepatofugal flow in hepatic veins, patent IVC. PERTINENT LABORATORY DATA: Admission white blood cell count 23,000, down to 14, 000 on 10/19/19. ALT of 220 on admission, down to 122 on 10/19/19. Bilirubin from 1.5 to 0.6. COVID PCR, negative. HIV antibody, negative. Pending lab studies include the results of the liver biopsy. There was an ova and parasite on the liver specimen that was negative. HOSPITAL COURSE: This is a 24-year-old man who has few days of vomiting, diarrhea, fever, right upper quadrant pain, came to the emergency room on and CT showed right-sided liver mass. A biopsy on the same day was performed and found to be a solid material. The results are currently pending, but so far not showing evidence of abscess. He has had a course of ceftriaxone and Flagyl for 5 days here with improvement in his leukocytosis, resolution of fever, anorexia, and abdominal pain. He may have secondary infection of the mass or may have had a component of cholangitis in a small branch of the biliary tree. He has been seen by the GI service. We will follow up with the liver pathology results and pending those results may require further biopsy material or excision of the mass. He will continue on ceftriaxone infusion as an outpatient and Flagyl pills while the workup continues. He is going to have a midline placed to allow outpatient infusion. Physical exam on 10/20/19. Vital signs: Temperature 37.2, heart rate 90, respiratory rate 18, blood pressure 125/80, oxygen saturation 97% on room air. In general, he is awake and not in distress. HEENT: There is no conjunctival hemorrhage. Oropharynx is without lesions. Neck is supple without mass. Heart is regular rate and rhythm without murmurs, rubs, or gallops. Lungs are clear to auscultation bilaterally. Abdomen: Soft, nontender, nondistended. Bowel sounds are present. There is no right upper quadrant tenderness to palpation. There is no rebound. Skin: There is no rash or splinter hemorrhage. Musculoskeletal: There is no spine tenderness to palpation or joint synovitis. DISCHARGE DIET: Regular. DISCHARGE ACTIVITY: As tolerated. Return to work on 10/25/19. Note provided. PICC dressing change at the infusion center and dressing instructions provided. ISSUES FOR FOLLOWUP: 1. Biopsy results for which he will meet with Dr. Merritt, to decide on next steps. 2. Weekly CBC, CMP, and CRP while on ceftriaxone at the infusion center with followup with Infectious Diseases in the next week. MEDICATIONS: Medication list for discharge: 1. Ceftriaxone 2 g IV daily x14 days. 2. Flagyl 500 mg by mouth every 8 hours for 5 more days. Return to the hospital if return of fever, abdominal pain, inability to keep down food or liquids. [id number]/[facility] #: [id number] [facility]
--- NOTE | 2019-10-20 14:17 | CONS ---
CC: Dr. Winter* CONSULTATION REPORT: DATE OF CONSULT: 10/20/19 REQUESTING PHYSICIAN: Dr. Marques. INDICATION: Liver mass. NARRATIVE: Mr. Schultz is a very pleasant 24-year-old gentleman who was in his normal state of good health until approximately a week prior to admission. He states that he was eating a sandwich when he developed severe right upper quadrant pain, nausea, and profuse vomiting. This continued for the next week until he presented to the emergency room. He denied any fevers with this. He did feel cold. No cough. No new medications. It was a normal sandwich with nothing out of the ordinary. No history of recent travel. He did have a traveler's diarrhea while visiting [facility] approximately [address] in the emergency room revealed a large liver mass of the right lobe. He was admitted for possible infectious workup. He was started on antibiotics. He did undergo a liver biopsy. I did speak with our pathologist, Dr. Wild, about this and the results are still pending, stains are pending. It does not appear to be an abscess. It appears more solid. The patient is feeling much better at this time. He states that all of his symptoms have totally resolved. He is hungry. He is eating. He is ambulating. He also tells me with regards to his splenomegaly that he had a very workup prior to his spleen being removed. He states that he did not have portal hypertension or any varices prior to the spleen being removed. PAST MEDICAL HISTORY: Idiopathic splenomegaly. 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 MEDICATIONS: No medications. ALLERGIES: No allergies. FAMILY HISTORY: Lung cancer. SOCIAL HISTORY: No tobacco. No alcohol. Occasional marijuana. REVIEW OF SYSTEMS: Twelve systems were reviewed and other than that mentioned in the HPI were unremarkable. PHYSICAL EXAM: Temperature is 98.9, blood pressure is 125/80, pulse is 91, respiratory rate of 18, O2 sat is 97%. General: Well-appearing male, lying flat in bed, alert, oriented, pleasant, fluent. HEENT: Mucous membranes are moist without lesions, ulcers, or exudate. Neck is supple. Trachea is midline. Head is normocephalic, atraumatic. Heart: Regular rate and rhythm. No murmurs, rubs, or gallops. Lungs: Clear to auscultation bilaterally. No wheezes, rales, or rhonchi. Abdomen: Positive bowel sounds. Soft. He does have a right upper quadrant fullness. No rebound. No guarding. Skin is warm and dry. No rashes or tattoos. Neuro: No asterixis. Psych: Good mood. Normal affect. DIAGNOSTIC STUDIES/LAB DATA: Of note, his white count is 14.8, hemoglobin is 9.9, platelet count of 305. Sodium is 139, creatinine is 0.66. Bilirubin is 0.6, AST is 29, ALT is 128, alk phos is 74. He is hepatitis A, B, and C negative. He has a portal vein ultrasound from this morning, which shows hypertrophy of the hepatic artery, otherwise normal. The CT showed a 7 x 9 x 7 hypodense lesion in the right posterior hepatic segment. ASSESSMENT AND PLAN: This is a 24-year-old gentleman with a large liver lesion of unknown etiology at this point. Possibilities would include a hepatocellular adenoma, hepatocellular carcinoma, an abscess, focal nodular hyperplasia. At this point, the biopsy results are still pending. I will await these, hopefully back tomorrow. He is doing better on antibiotics. He is going to get a PICC line placed and then be discharged later on today on antibiotics. I will follow up with him in the next 24 to 48 hours pending the results of the biopsies. We will continue to follow along. [id number]/[facility] #: [id number] [place]
[2019-10-20] MEDS: cefTRIAXone(*) 2 GM in NS 0.9% 100 ML* 100 ML IVPB SCH (15:22)
[2019-10-20 16:33] VITALS: BP 122/79
== END 2019-10-20 16:55 | disposition home or self-care (01) ==
LOC: ED 06:30 → MED 14:19 → MEDTELE 10-19 15:35
PROVIDERS: ADMIT Internal Medicine; ATTEND Internal Medicine
PROC: 0FB03ZX Excision of Liver, Percutaneous Approach, Diagnostic (ICD-10-PCS; principal; 2019-10-16)
PROC: 05HY33Z Insertion of Infusion Device into Upper Vein, Percutaneous Approach (ICD-10-PCS; 2019-10-20)
DX: R16.0 Hepatomegaly, not elsewhere classified (principal); K76.6 Portal hypertension; I85.00 Esophageal varices without bleeding; R50.9 Fever, unspecified; D53.9 Nutritional anemia, unspecified; R10.11 Right upper quadrant pain; D72.829 Elevated white blood cell count, unspecified; Z90.81 Acquired absence of spleen; Z80.1 Family history of malignant neoplasm of trachea, bronchus and lung
CPT/HCPCS: 36415; 71045; 74177; 76705; 76942; 80053; 80074; 81003; 81015; 82607; 82728; 82746; 83540; 83550; 83605; 83690; 83735; 85025; 85027; 85045; 85060; 86140; 86753; 87040; 87045; 87046; 87086; 87177; 87209; 87328; 87329; 87337; 87389; 87635; 88172; 88173; 88305; 88313; 88341; 88342; 93975; 96374; 99284; A9270-GY; G2023; J0696; J2405; J2543; J3010; J3475; Q9967